=== PATIENT | male | born 1995 | race African-American/Black ===

== ENCOUNTER 2019-06-29 15:46 | Emergency (ER) | payer SELFPAY ==
[~2019-06-29] VITALS: Ht 177.8 cm; Wt 118.4 kg
[2019-06-29 15:53] VITALS: BP 146/99
--- NOTE | 2019-06-29 16:10 | NUR ---
BIB SELF FOR MED CLEARANCE . PT'S FAMILY TOLD HIM THAT HE HAS BODY ODOR. SKIN IS PINK/WARM/DRY; AAOX4 WITH EVEN AND STEADY GAIT; LUNGS CLEAR BL; HR EVEN AND REGULAR; PT DENIES ANY FEVER, CP, SOB, OR COUGH AT THIS TIME; PATIENT STATES PAIN OF 0/10 AT THIS TIME; VSS; PATIENT POSITIONED FOR COMFORT; HOB ELEVATED; BEDRAILS UP X2; BED DOWN. ER MD MADE AWARE OF PT STATUS.
[2019-06-29 16:19] VITALS: BP 146/99
--- NOTE | 2019-06-29 16:19 | NUR ---
Patient discharged with v/s stable. Written and verbal after care instructions given and explained. Patient verbalized understanding. Ambulatory with steady gait. All questions addressed prior to discharge. Advised to follow up with PMD.
== END 2019-06-29 16:19 | disposition home or self-care (01) ==
LOC: MED 15:46
DX: L75.0 Bromhidrosis (principal); Z02.89 Encounter for other administrative examinations
CPT/HCPCS: 99281